=== PATIENT | female | born 1950 | race African-American/Black ===

== ENCOUNTER 2021-03-15 17:27 | Emergency (ER) | payer OTHER ==
[~2021-03-15] VITALS: Ht 167.6 cm; Wt 99.8 kg
[2021-03-15 18:46] LABS: Basophils # (auto) 0 10 ^3/uL (0-0.2); Basophils % (auto) 0.5 % (0.0-2.0); Eosinophils # (auto) 0.2 10 ^3/uL (0-0.8); Eosinophils % (auto) 4.7 % (0.0-7.0); Hematocrit 45.3 % (36.0-46.0); Hemoglobin 14.5 g/dL (12.2-16.2); Lymphocytes # (auto) 0.6 10 ^3/uL (0.4-5.4); Mean Corpuscular Hemoglobin 28.8 pg (28.0-32.0); Mean Corpuscular Hgb Conc. 31.9 g/dL (32.0-36.0); Mean Corpuscular Volume 90.2 fL (80.0-100.0); Monocytes # (auto) 0.5 10 ^3/uL (0-1.3); Monocytes % (auto) 13.9 % (0.0-12.0); Neutrophils # (auto) 2.2 10 ^3/uL (1.6-8.6); Neutrophils % (auto) 62.9 % (37.0-80.0); Red Blood Cells 5.02 10^6/uL (4.0-5.20); Red Cell Distribution Width 13.8 % (11.8-14.3); White Blood Cell 3.6 10^3/uL (4.4-10.8)
[2021-03-15 18:47] LABS: Urine Bacteria MOD /hpf (None Seen); Urine Blood Negative /uL (Negative); Urine Specific Gravity 1.011 (1.001-1.035); Urine WBC 1 /hpf (0 - 5)
[2021-03-15 19:02] LABS: Albumin 3.9 g/dL (3.4-5.0); Calcium 9.7 mg/dL (8.5-10.1)
[2021-03-15 19:08] LABS: BUN/Creatinine Ratio 7.9; Bilirubin, Total 0.4 mg/dL (0.2-1.0); Total Protein 8.3 g/dL (6.4-8.2)
[2021-03-15 19:41] LABS: Lactic Acid w/Reflex 2.4 mmol/L (0.4-2.0)
[2021-03-15] MEDS ORDERED: ACYCLOVIR 400 MG TAB PO ONE (19:45)
[2021-03-15 20:20] VITALS: BP 140/80
== END 2021-03-15 21:15 | disposition home or self-care (01) ==
LOC: ER 17:29
DX: B02.9 Zoster without complications (principal); E11.9 Type 2 diabetes mellitus without complications; I10 Essential (primary) hypertension; Z98.51 Tubal ligation status; Z90.89 Acquired absence of other organs; Z87.891 Personal history of nicotine dependence
CPT/HCPCS: 36415; 80053; 81001; 83605; 85025

== ENCOUNTER 2022-09-12 11:32 | Emergency (ER) | payer OTHER ==
[~2022-09-12] VITALS: Ht 167.6 cm; Wt 99.7 kg
[2022-09-12 11:50] VITALS: BP 143/75
== END 2022-09-12 13:02 | disposition left against medical advice (07) ==
LOC: ER 11:32
DX: I10 Essential (primary) hypertension (principal); E11.9 Type 2 diabetes mellitus without complications; Z87.891 Personal history of nicotine dependence